=== PATIENT | male | born 1985 | race Caucasian/White ===

== ENCOUNTER 2024-04-14 10:09 | Outpatient (AMB) | payer OTHER, SELFPAY ==
--- NOTE | 2024-04-14 10:23 | A.OFFVIS_ITS ---
VS Expanded 04/14/24 10:26 04/14/24 10:29 Height 5 ft 7 in 5 ft 7 in Weight 216 lb 7.903 oz 216 lb BMI 33.9 33.8 Intake Visit Reasons: DM/LVM Nutrition Presentation Details: Pt presents for MNT for T2DM Pt reports making dietary modifications, having lost almost 20+ lbs in 1 1/ yrs, working on reducing sugars and salt as well as keeping physically active. Food frequency fruits: 0-1/d ve-2/d dairy 3+/d fish :reports including 2 a day starches > 25+/day Eating out 2 x/wk reports cutting out sodas and reducing on pastries etoh-- smoking-- BS Monitoring Most Recent Diabetes Results: No Data to Display [id number].[id number] Equation Height: 5 ft 7 in Weight: 216 lb Resting Metabolic Rate: 1855.52 Calculated Activity Level: Sedentary Calories Needed to Maintain Weight: 2226.62 Diagnosis Nutrition problem #1: overweight/obesity As related to (etiology) #1: diagnosis As evidenced by (sign/symptom) #1: high BMI Assessment & Plan Assessment & Plan (1) T2DM (type 2 diabetes mellitus): Code(s): E11.9 - Type 2 diabetes mellitus without complications Category: Medical Plan: Wt: 98 Kg ( 04/12 ) Est kcal needs as per MSJ: 2200 (40% carb, 30% protein/fat) Est fluid needs as per 25-30 ml/d: 2900 Est prot per day as per 1 g/kg bw: 98 Recommend fiber intake : 8-10 g per day and gradually increase to 25-28 g per day for women and 35-38 g for men or as tolerated Recommend sodium intake per day : less than 1500 mg less than 2000 mg Educated patient on: ( R = reviewed V = verbalizes understanding N/R = needs review N/A = not applicable * Food sources of carbohydrate, adequate serving sizes and its role in various health conditions: R,V * Differences between complex carbohydrates a simple carbohydrates, role of fiber in diet: R * Lean protein sources of foods: R V * Differences between types of fats and role in diet (mono on saturated fat fatty acids, saturated fatty acids, trans fats): R V N/R * Food sources of sodium in salt and healthy modifications for heart health in kidney health: R V R/V * Vitamins and minerals: R V N/R * Healthy plate method concept: R V * Physical activity: Benefits a precaution: R V * Hypoglycemia protocol (rule of 15): R V N/R * Dietary prevention of Hyperglycemia: R V Patient Instructions: Continue working on following healthy plat emethod , modify your total carb to 75 g per meal, choosing complex carbohydrates Coding Level of Care Code Nutr Indiv Intake (69508) Diagnoses T2DM (type 2 diabetes mellitus) E11.9 Time Spent (min) 30
[2024-04-14 10:26] VITALS: BMI 33.9
[2024-04-14 10:29] VITALS: BMI 33.8
== END 2024-04-14 10:51 | disposition home or self-care (01) ==
PROVIDERS: Visit Provider Dietitian, Registered
DX: E11.9 Type 2 diabetes mellitus without complications (principal)

== ENCOUNTER → 2024-04-14 10:09 | Outpatient (BNVA) | payer OTHER, SELFPAY | PROVIDERS: Visit Provider Dietitian, Registered | DX: E11.9 Type 2 diabetes mellitus without complications (principal); Z71.3 Dietary counseling and surveillance | CPT/HCPCS: 97802 ==